=== PATIENT | male | born 1950 ===

== ENCOUNTER 2019-04-25 09:30 | Inpatient (IN) | payer OTHER ==
[~2019-04-25] VITALS: Ht 188 cm; Wt 108.9 kg
[2019-04-25] MEDS ORDERED: SYNTHROID175 MCG PO (11:38)
[2019-05-03] MEDS ORDERED: ELIQUIS2.5 MG PO (12:23)
[2019-05-03] MEDS ORDERED: DUI500 PO (12:23)
[2019-05-03] MEDS ORDERED: PERCOCET 5-3251 EACH PO (12:23)
== END 2019-05-03 17:48 | disposition home or self-care (01) | DRG 470 ==
LOC: O/R 05-01 07:53 → SURG 05-01 07:53 → SURG-SUITE 05-01 09:30 → O/R 05-01 09:30 → SURG 05-01 09:30
PROVIDERS: ADMIT Orthopaedic Surgery
PROC: 0SRC0J9 Replacement of Right Knee Joint with Synthetic Substitute, Cemented, Open Approach (ICD-10-PCS; principal; 2019-05-01 15:15)
DX: M17.11 Unilateral primary osteoarthritis, right knee (principal); D62 Acute posthemorrhagic anemia; E03.9 Hypothyroidism, unspecified